=== PATIENT | male | born 1965 | race Caucasian/White ===

== ENCOUNTER 2022-07-28 12:28 | Outpatient (CLI) | payer MEDICARE, SELFPAY ==
--- NOTE | 2022-07-28 12:47 | ECHO_ITS ---
Patient Info Name: Santhosh Barroso Age: 57 years : 1965 Gender: Male Ht: 72 in Wt: 212 lbs BSA: 2.23 m2 HR: 71 bpm BP: 116 / 76 mmHg Technical Quality: Fair Exam Date: 07/28/2022 1:14 PM Exam Location: [facility] Patient Status: Outpatient Admit Date: 07/28/2022 Staff Ordering Physician: Jann Herrera DO Fountain Brush Assembler: Kadie Beauchamp RDCS Attending Provider: Jann Herrera DO Referring Physician: Javier MILLS; Exam Type: CA echo doppler color flow Study Info Indications R06.09 - Other forms of dyspnea Complete two-dimensional, color flow and Doppler transthoracic echocardiogram is performed. Summary 1. Complete two-dimensional, color flow and Doppler transthoracic echocardiogram is performed. 2. Left ventricular chamber dimension is normal. 3. Left ventricular systolic function is globally mildly reduced, estimated at 45-50%. 4. The left ventricular diastolic function is grade I diastolic dysfunction. 5. E/e' 9 is minimally elevated. 6. Global longitudinal strain is abnormal at -12.2%. 7. There is mild aortic valve sclerosis with most calcifications at the tip of right coronary valve leaflet. 8. There is mild aortic valve regurgitation. 9. No pulmonary hypertension, estimated pulmonary arterial systolic pressure is 22 mmHg. 10. There is trivial pericardial effusion. Left Ventricle E/e' 9 is minimally elevated. Global longitudinal strain is abnormal at -12.2%. Left ventricular chamber dimension is normal. Left ventricular systolic function is globally mildly reduced, estimated at 45-50%. The left ventricular diastolic function is grade I diastolic dysfunction. Right Ventricle Right ventricular chamber dimension is normal. Right ventricular systolic function is normal. Left Atria Left atrial chamber dimension is normal. Right Atria Right atrial chamber dimension is normal. Aortic Valve There is mild aortic valve sclerosis with most calcifications at the tip of right coronary valve leaflet. The aortic valve is trileaflet. There is no aortic valve stenosis. There is mild aortic valve regurgitation. Pulmonic Valve There is no pulmonic regurgitation. Mitral Valve There is no mitral valve stenosis. There is no mitral valve regurgitation. Tricuspid Valve There is no tricuspid valve regurgitation. No pulmonary hypertension, estimated pulmonary arterial systolic pressure is 22 mmHg. Pericardium/Pleural There is trivial pericardial effusion. Inferior Vena Cava Normal inferior vena cava with >50% collapse upon inspiration consistent with normal right atrial pressure, 5 mmHg. Aorta The aortic root size at the sinus of Valsalva is normal. Left Ventricular Outflow Tract Name Value Normal LVOT 2D LVOT Diameter 2.1 cm LVOT Doppler LVOT Peak Gradient 3 mmHg LVOT Mean Gradient 2 mmHg LVOT VTI 16 cm LVOT VTI/AV VTI Ratio 0.7 LVOT Stroke Volume 53 ml LVOT CO 3.6 l/min L
== END 2022-07-28 12:29 | disposition home or self-care (01) ==
PROVIDERS: PCP Internal Medicine; Visit Provider Internal Medicine Cardiovascular Disease
DX: R06.09 Other forms of dyspnea (principal); I35.1 Nonrheumatic aortic (valve) insufficiency
CPT/HCPCS: 93306

== ENCOUNTER 2022-09-21 11:56 | Outpatient (CLI) | payer MEDICARE, SELFPAY ==
--- NOTE | ~2022-09-21 | CT_ITS ---
EXAMINATION: CT abdomen pelvis w con DATE: 09/21/2022 12:25 INDICATION: Left mid and upper abdominal pain TECHNIQUE: Computed tomography (CT) of the abdomen and pelvis was performed with 100 CC Omnipaque 350 intravenous contrast. Automated exposure control and iterative reconstruction technique were employe d. Exam dose: 706.10 mGy-cm total exam DLP. COMPARISON: None. FINDINGS: 4.8 and a 6.5 mm pleura-based posterolateral right lower lobe basilar opacities and 7 mm le ft lower lobe lateral basilar pleural-based soft tissue opacity. Minimal bilateral lower lobe depende nt atelectasis. Heart size is within normal range. No pericardial or pleural effusion. Diffuse hepatic steatosis. No hepatic, splenic, pancreatic, adrenal or solid renal space-occupying ma ss lesion is evident. Approximately 1 cm exophytic left renal cyst. Very prominent lower pole left renal artery calcification. No urinary tract calculus or hydroureteronephrosis. There is moderate diffuse thickening of the urina ry bladder wall and mild prostate enlargement and calcification. There is extensive calcification of the abdominal aorta, iliac and femoral arteries. No abdominal aor tic aneurysm. No intraperitoneal or retroperitoneal or pelvic mass lesion or adenopathy or ascites is detected. Normal appendix. There is fatty infiltration of the wall of the sigmoid and descending colon, which may be due to past colitis. No bowel obstruction, pericolic fat stranding or intraperitoneal free air. Status post L3-L5 posterior surgical fusion. Degenerative disc disease, particularly severe at L4-5 and L5-S1, with associated retrolisthesis at L 5-S1. No suspicious osteolytic or osteoblastic lesions are noted. IMPRESSION: Hepatic steatosis Mild enlargement and calcification, moderate diffuse thickening and urinary bladder wall Normal appendix Fatty infiltration of the left colon wall, which may be due to past colitis Reviewed, dictated and finalized at [facility]. Reviewed, dictated and finalized at [facility]. YTICAL RESEARCH PROGRAM MANAGER IMPRESSION: Hepatic steatosis Mild enlargement and calcification, moderate diffuse thickening and urinary cammy dder wall Normal appendix Fatty infiltration of the left colon wall, which may be due to past colitis
[2022-09-21 12:15] LABS: Estimated Glomerular Filt Rate 31
== END 2022-09-21 11:57 | disposition home or self-care (01) ==
PROVIDERS: PCP Internal Medicine; Visit Provider Nurse Practitioner
DX: R10.9 Unspecified abdominal pain (principal); K76.0 Fatty (change of) liver, not elsewhere classified
CPT/HCPCS: 74177; Q9967

== ENCOUNTER 2023-05-12 02:51 | Day surgery (SDC) | payer MEDICARE, SELFPAY ==
[2023-05-11 15:21] VITALS: BMI 29.9
[2023-05-12] VITALS (10 sets, daily range): BP systolic 94–109; BP diastolic 58–69; PULSE 56–74; RESP 14–20; TEMP 35.7–36.2; O2SAT 97–99; BMI 27.6
[2023-05-12 09:03] LABS: Basophils Absolute Auto 0.1 K/mm3 (0.0-0.1); Basophils Percent Auto 0.8 % (0.2-1.2); Eosinophils Absolute Auto 0.2 K/mm3 (0-0.3); Eosinophils Percent Auto 3.7 % (0-4.4); Hematocrit 38.5 % (42.0-52.0); Hemoglobin 12.3 g/dL (14.0-18.0); Immature Granulocyte Absolute 0.03 K/mm3 (0.00-0.031); Immature Granulocyte Percent A 0.5 % (0-0.5); Lymphocytes Absolute Auto 1.45 K/mm3 (0.9-3.2); Lymphocytes Percent Auto 24.3 % (18.3-44.2); Mean Corpuscular HGB Conc 31.9 g/dl (32-36); Mean Corpuscular Hemoglobin 31.9 pg (26-34); Mean Corpuscular Volume 99.7 fl (80-100); Mean Platelet Volume 9.6 fl (7.4-10.4); Monocytes Absolute Auto 0.7 K/mm3 (0.1-0.6); Monocytes Percent Auto 11.2 % (2.6-8.5); Neutrophils Absolute Auto 3.6 K/mm3 (1.3-6.7); Neutrophils Percent Auto 59.5 % (45.5-73.1); Platelet Count Result 260 k/mm3 (150-375); Red Blood Count 3.86 M/mm3 (4.6-6.20); Red Cell Distribution Width 12.9 % (11.5-14.5)
[2023-05-12 09:21] LABS: Anion Gap 7 mmol/L (8-16); Blood Urea Nitrogen 16 mg/dL (9-20); Calcium 9.2 mg/dL (8.4-10.2); Carbon Dioxide 26 mmol/L (22-30); Chloride 109 mmol/L (98-107); Estimated CRCL calculation 40 ml/min; Estimated Glomerular Filt Rate 34; Glucose 107 mg/dL (65-110); Potassium 4.3 mmol/L (3.4-5.0); Sodium 142 mmol/L (137-145)
--- NOTE | 2023-05-12 10:14 | WPDHPUPDATE1 ---
History and Physical Update Update Date/Time: 05/12/23 10:14 History and Physical has been reviewed, including an updated exam of the patient. There are NO changes in the patient's condition. Risks, benefits, and alternatives have been discussed and questions answered. Patient agrees to proceed with procedure.
--- NOTE | 2023-05-12 10:14 | WPDMODSED ---
Moderate Sedation Note-Pt Data Patient Data Diagnosis: Abnormal coronary CTA, dyspnea on exertion Present Complaint: Abnormal coronary CTA, dyspnea on exertion Procedure to be performed/Plan: Coronary angiography, left heart cath, +/- PCI Allergies Allergy/AdvReac Type Severity Reaction Status Date / Time No Known Allergies Allergy Verified 05/12/23 09:06 Home Medications Medication Instructions Recorded Confirmed Type ergocalciferol (vitamin D2) 1,250 50,000 unit PO WEEKLY 07/24/19 05/12/23 History mcg (50,000 unit) capsule (Vitamin D2) ezetimibe 10 mg tablet 10 mg PO DAILY 07/24/19 05/12/23 History fenofibrate nanocrystallized 145 145 mg PO DAILY 07/24/19 05/12/23 History mg tablet rosuvastatin 40 mg tablet 40 mg PO DAILY 07/24/19 05/12/23 History losartan 50 mg tablet 50 mg PO DAILY 02/13/22 05/12/23 History clopidogrel 75 mg tablet 75 mg PO DAILY #90 tabs 11/02/22 05/12/23 Rx hydrocodone 10 mg-acetaminophen 1 tablet PO TID 05/12/23 05/12/23 History 325 mg tablet Current Medications: Active Medications Sodium Chloride (Normal Saline Iv) 500 mls @ 100 mls/hr IV CONT .Q5H KHALIF Sedation/Anesthesia: No previous sedation/anesthesia problems (including family history). FORMERLY [facility], 1928–[facility] Past Medical History Medical History Bladder wall thickening CAD (coronary artery disease) Colon wall thickening Hx of adenomatous colonic polyps Hyperlipidemia Hypertension Irritable bowel syndrome with diarrhea Left sided abdominal pain terminal makeup operator prescription opiate use hydrocodone, 10/325 twice a day Tobacco abuse Social History Social History Smoking packs per day: 2 Smoking cigarettes per day: 40.0 Years smoked: 45 Smoking pack-years: 90.00 Smoking status: Current every day smoker Tobacco type: cigarettes Alcohol intake: never Substance use: never Substance use type: does not use Living arrangements: with family Spiritual care concerns: No Mod Sed Physical Exam Physical Exam Pre Procedural Exam: Normal: Appearance, Lungs, Heart Rate, Heart Rhythm, Neuro Exam, Abdomen, Extremities and Skin Hours since solid foods: 12 Hours since liquid intake: 8 Mallampati Classification: class III Internal Medicine - PN: Obj Da Vital Signs Vital Signs: Vital Signs - 24 hr 05/12/23 09:19 Temperature 35.7 C L Pulse Rate 67 Respiratory Rate 14 Blood Pressure 100/69 Pulse Oximetry 97 Oxygen Delivery Room Air Meds/Results Medications: Active Medications Generic Name Dose Route Start Last Admin Trade Name Lebronq PRN Reason Stop Dose Admin Sodium Chloride 500 mls @ 100 mls/hr 05/12/23 08:30 Normal Saline Iv IV CONT .Q5H KHALIF Labs 05/12/23 08:57 05/12/23 08:57 Labs: Laboratory Results - last 24 hr 05/12/23 08:57 WBC 6.0 RBC 3.86 L Hgb 12.3 L Hct 38.5 L MCV 99.7 MCH 31.9 MCHC 31.9 L RDW 12.9 Plt Count 260 MPV 9.6 Immature Gran % (Auto) 0.5 Neut % (Auto) 59.5 Lymph % (Auto) 24.3 Bates % (Auto) 11.2 H Eos % (Auto) 3.7 Baso % (Auto) 0.8 Lymph # (Auto) 1.45 Bates # (Auto) 0.7 H Eos # (Auto) 0.2 Baso # (Auto) 0.1 Abs Immat Gran (auto) 0.03 Absolute Neuts (auto) 3.6 Absolute Nucleated RBC 0.0 Nucleated RBC % 0.0 Sodium 142 Potassium 4.3 Chloride 109 H Carbon Dioxide 26 Anion Gap 7 L BUN 16 Creatinine 2.00 H Estim Creat Clear Calc 40 Estimated GFR 34 L Glucose 107 Calcium 9.2 ASA Classification/Sedation ASA Classification/Sedation ASA Class: II Emergent: No Risks: Risks, benefits and alternatives explained and patient/family accepted plan for sedation. Patient re-evaluated immediately prior to sedation.
--- NOTE | 2023-05-12 11:27 | WPDCARDPROC ---
Cardiac Cath Procedure Note Date of procedure:: 05/12/23 Performing physician:: CATHETERIZATION LABORATORY REPORT Procedure Date: 05/12/2023 Custom Feed Corn Operator: Audra Menard M.D., [facility]? Referring Physician: Dr. Herrera ? Anesthesia: Versed and Fentanyl were ordered and given in my presence at 10:18, procedure ended at 10:53. Supervision of nurse monitored moderate sedation with Versed and Fentanyl was provided for 35 minutes. Total of Versed 2mg and Fentanyl 50mcg were administered by the Truck Driver Supervisor RN Sandrita Lancaster. Pre-op Diagnosis: Coronary artery disease Post-op Diagnosis: 1. The mid LAD has a 70-80% calcific stenosis at the bifurcation of the first diagonal branch. The first diagonal branch is a small caliber vessel with 90% stenosis in its proximal portion. No apical LAD seen with antegrade flow on injections of the LAD, however, the distal OM gives off [id number] collateral filling to what appears to be the distal/apical LAD. 2. The distal RCA has a 60-70% calcified stenosis proximal to the bifurcation. Procedure(s): 1. Moderate sedation 2. Ultrasound-guided access of the right radial artery 3. Coronary angiography Access Site: Right radial artery Brief History and Clinical Indications: Patient is a 58 year old male with peripheral arterial disease, hypertension, hyperlipidemia, tobacco dependence who is referred for cardiac cath for dyspnea on exertion and abnormal CCTA. All risks, benefits and alternatives to left heart catheterization with or without percutaneous coronary intervention was discussed at length with the patient. Risk of complications including but not limited to bleeding, infection, arrhythmia, stroke, worsening kidney function, blood loss, groin hematoma, limb loss, emergency coronary artery bypass grafting, and even were discussed with the patient and all questions were answered. The patient understood and wished to proceed. Time out called, patient name, date of , medical record number, allergies, procedure performed, identify Custom Feed Corn Operator, patient and staff member concurred with accurate data, procedure carried on. Findings: LEFT HEART CATHETERIZATION FINDINGS: 1. Left main: The left main coronary artery is very short, the LAD and LCX almost appears to have separate ostia as catheters kept selectively engaging into LCX/LAD. 2. Left anterior descending: Calcifications seen in the proximal and mid LAD. The proximal LAD has luminal irregularities. The mid LAD has a 70-80% calcific stenosis at the bifurcation of the first diagonal branch. Remainder of the mid LAD has mild diffuse disease. No apical LAD seen. The first diagonal branch is a small caliber vessel with 90% stenosis in its proximal portion. There appears to be [id number] collateral flow from the LAD filling possibly a diagonal branch. 3. Left circumflex: Large caliber vessel with mild diffuse disease in the proximal and mid portion; continues on as large caliber OM vessel. The distal OM gives off [id number] collateral filling to what appears to be the distal/apical LAD. 4. Right coronary artery: Large caliber vessel. The RCA is the dominant vessel. The RCA is calcified throughout. The proximal and mid portions have mild diffuse disease with approximately a 40% stenosis in the mid portion. The distal RCA has a 60-70% calcified stenosis proximal to the bifurcation. Description of Procedure: Informed consent signed and placed in the chart. Patient transferred to crime lab analyst room. Prepped and draped in usual sterile fashion. 2% lidocaine injected subcutaneously in right wrist area. 22-gauge venipuncture catheter used to access the right radial artery under ultrasound guidance. 6-FR slender sheath placed in right radial artery. Nitroglycerine and Verapamil were given intraarterial through the sheath. Versacore wire advanced under fluoroscopy 5F Tig 4 diagnostic catheter selectively engaged in the LCX. 5F FL 4 diagnostic catheter se
== END 2023-05-12 14:00 | disposition home or self-care (01) ==
PROVIDERS: PCP Internal Medicine; Visit Provider Internal Medicine
PROC: (CPT 93454; principal; 2023-05-12 10:00)
DX: I25.10 Atherosclerotic heart disease of native coronary artery without angina pectoris (principal); R93.1 Abnormal findings on diagnostic imaging of heart and coronary circulation; R06.09 Other forms of dyspnea; I10 Essential (primary) hypertension; E78.5 Hyperlipidemia, unspecified; I73.9 Peripheral vascular disease, unspecified; K58.0 Irritable bowel syndrome with diarrhea; Z79.02 Long term (current) use of antithrombotics/antiplatelets; Z79.891 Long term (current) use of opiate analgesic; F17.210 Nicotine dependence, cigarettes, uncomplicated
CPT/HCPCS: 36415; 80048; 85025; 93454; A9270; C1769; C1887; C1894; J1644; J2250; J2305; J3010; J7040